=== PATIENT | male | born 1985 | race Two or more races ===

== ENCOUNTER 2023-10-02 20:07 | Emergency (ER) | payer OTHER ==
[~2023-10-02] VITALS: Ht 175.3 cm; Wt 83.9 kg
[2023-10-02 20:20] VITALS: BP 140/86; PULSE 94; RESP 20; O2SAT 98
[2023-10-02] MEDS ORDERED: IBUP-1456 PO (22:40)
== END 2023-10-02 22:52 | disposition home or self-care (01) ==
LOC: ER 20:07 → EDBD 20:07 → ER 22:52
DX: S80.12XA Contusion of left lower leg, initial encounter (principal); Z79.1 Long term (current) use of non-steroidal anti-inflammatories (NSAID); W01.0XXA Fall on same level from slipping, tripping and stumbling without subsequent striking against object, initial encounter; Y93.89 Activity, other specified; Y92.89 Other specified places as the place of occurrence of the external cause; Y99.8 Other external cause status

== ENCOUNTER 2024-03-20 09:46 | Emergency (ER) | payer OTHER ==
[~2024-03-20] VITALS: Ht 180.3 cm; Wt 86.3 kg
[~2024-03-20 09:46] MED LIST: IBUP-1456 PO
[2024-03-20 10:09] VITALS: PULSE 86; RESP 14; TEMP 98.6; O2SAT 93
[2024-03-20] MEDS: LORazepam 2MG/ML-1ML VIAL IV ONE (10:25)
[2024-03-20] MEDS: SODIUM CHLORIDE 0.9% 1,000 ML IV ONE (10:26)
[2024-03-20 11:13] LABS: Eosinophils # (auto) 0 10 ^3/uL (0-0.8); Monocytes # (auto) 0.6 10 ^3/uL (0-1.3); Neutrophils # (auto) 2.6 10 ^3/uL (1.6-8.6); White Blood Cell 3.7 10^3/uL (4.4-10.8)
[2024-03-20 11:17] LABS: Chloride 101 mmol/L (98-107); Potassium 3.8 mmol/L (3.5-5.1); Sodium 140 mmol/L (136-145)
[2024-03-20 11:18] LABS: Anion Gap 14 (5-15); Basophils # (auto) 0.1 10 ^3/uL (0-0.2); Basophils % (auto) 1.6 % (0.0-2.0); Calcium 9.3 mg/dL (8.7-10.4); Carbon Dioxide 25 mmol/L (20-30); Eosinophils % (auto) 0.3 % (0.0-7.0); Hematocrit 42.4 % (41.0-53.0); Lymphocytes # (auto) 0.4 10 ^3/uL (0.4-5.4); Lymphocytes % (auto) 9.8 % (10.0-50.0); Mean Corpuscular Hemoglobin 37.4 pg (28.0-32.0); Mean Corpuscular Hgb Conc. 35.5 g/dL (32.0-36.0); Mean Corpuscular Volume 105.5 fL (80.0-100.0); Monocytes % (auto) 15.8 % (0.0-12.0); Neutrophils % (auto) 72.5 % (37.0-80.0); Nucleated Red Blood Cells % 0.4 %; Red Blood Cells 4.02 10^6/uL (4.5-5.90); Red Cell Distribution Width 13.6 % (11.8-14.3)
[2024-03-20 11:23] LABS: BUN/Creatinine Ratio 8.1 (10.0-20.0); Blood Urea Nitrogen 5 mg/dL (9-23); Glucose 109 mg/dL (74-106)
[2024-03-20 11:24] LABS: Blood Alcohol 209.3 mg/dL (<10)
[2024-03-20] MEDS ORDERED: LORA-1121 PO (11:44)
[2024-03-20 12:00] VITALS: BP 128/81; PULSE 79; RESP 14; O2SAT 94
[2024-03-20 12:26] LABS: Amphetamine Screen, Urine Neg (NEGATIVE); Barbiturate Scree,Urine Neg (NEGATIVE); Benzodiazephine Screen, Urine Neg (NEGATIVE); Cocaine Screen, Urine Neg (NEGATIVE)
[2024-03-20 12:27] LABS: Cannabinoid Screen, Urine Neg (NEGATIVE); Opiate Scree,Urine Neg (NEGATIVE); Phencyclidine Screen, Urine Neg (NEGATIVE)
== END 2024-03-20 12:21 | disposition home or self-care (01) ==
LOC: EDBD 09:46 → ER 09:46
DX: F10.239 Alcohol dependence with withdrawal, unspecified (principal); F10.229 Alcohol dependence with intoxication, unspecified; R11.2 Nausea with vomiting, unspecified; Z79.899 Other long term (current) drug therapy; Y90.8 Blood alcohol level of 240 mg/100 ml or more
CPT/HCPCS: 36415; 80048; 80307; 80320; 85025; 96361; 96374; 99283; J2060; J7030

== ENCOUNTER 2024-03-21 11:23 | Inpatient (IN) | payer OTHER ==
[~2024-03-21] VITALS: Ht 180.3 cm; Wt 81.0 kg
[~2024-03-21 11:23] MED LIST changes: +LORA-1121 PO
[2024-03-21] MEDS: SODIUM CHLORIDE 0.9% 1,000 ML IV ONE ×2 (11:30)
[2024-03-21] MEDS: THIAMINE 100mg/ml INJ (200mg/2ml VIAL) IV ONE (12:10)
[2024-03-21] MEDS: LORazepam 2MG/ML-1ML VIAL IV ONE (12:10)
[2024-03-21 12:46] VITALS: PULSE 86; RESP 18; O2SAT 98
[2024-03-21] MEDS ORDERED: NITROGLYCERIN 0.4 MG SL TAB SL PRN (15:45)
[2024-03-21] MEDS: SODIUM CHLORIDE 0.9% 1,000 ML IV SCH (15:45)
[2024-03-21] MEDS ORDERED: ONDANSETRON HCL 4 MG/2 ML VIAL IV PRN (15:45)
[2024-03-21] MEDS ORDERED: DOCUSATE SOD 100 MG CAP PO PRN (15:45)
[2024-03-21] MEDS ORDERED: LORazepam 2MG/ML-1ML VIAL IV PRN (16:15)
[2024-03-21] MEDS: chlordiazePOXIDE HCL 25 MG CAP PO SCH (16:29)
[2024-03-21] MEDS: LORazepam 2MG/ML-1ML VIAL IV PRN (16:29)
[2024-03-21 16:57] LABS: Basophils # (auto) 0.1 10 ^3/uL (0-0.2); Eosinophils # (auto) 0 10 ^3/uL (0-0.8); Eosinophils % (auto) 0.3 % (0.0-7.0); Hemoglobin 15.2 g/dL (13.5-17.5); Lymphocytes # (auto) 0.7 10 ^3/uL (0.4-5.4); Monocytes # (auto) 0.6 10 ^3/uL (0-1.3); Neutrophils # (auto) 3.1 10 ^3/uL (1.6-8.6); Nucleated Red Blood Cells % 0.1 %; White Blood Cell 4.5 10^3/uL (4.4-10.8)
[2024-03-21 17:00] LABS: Basophils % (auto) 1.2 % (0.0-2.0); Hematocrit 43.6 % (41.0-53.0); Lymphocytes % (auto) 15.2 % (10.0-50.0); Mean Corpuscular Hgb Conc. 34.8 g/dL (32.0-36.0); Mean Corpuscular Volume 106.4 fL (80.0-100.0); Neutrophils % (auto) 69.3 % (37.0-80.0); Platelet Count (auto) 127 10^3/uL (140-450); Red Cell Distribution Width 13.4 % (11.8-14.3)
[2024-03-21 17:01] LABS: Alanine Aminotransferase 151 U/L (7-40); Albumin 4.4 g/dL (3.2-4.8); Alkaline Phosphatase 84 U/L (46-116); Anion Gap 8 (5-15); Aspartate Aminotransferase 269 U/L (13-40); Bilirubin, Total 1.2 mg/dL (0.2-1.0); Calcium 9.2 mg/dL (8.7-10.4); Carbon Dioxide 28 mmol/L (20-30); Chloride 103 mmol/L (98-107); Glucose 104 mg/dL (74-106); Potassium 3.7 mmol/L (3.5-5.1); Sodium 139 mmol/L (136-145); Total Protein 7.2 g/dL (5.7-8.2)
[2024-03-21 17:08] LABS: BUN/Creatinine Ratio 8.1 (10.0-20.0); Blood Urea Nitrogen < 5 mg/dL (9-23)
[2024-03-21] MEDS: FOLIC ACID 1 MG, MAGNESIUM SULF SDV 50% 8 MEQ, MULTIPLE VITAMIN 10 ML, THIAMINE INJ 100... INJ SCH (20:00)
[2024-03-21 22:45] VITALS: BP 149/94; PULSE 77; RESP 17; TEMP 98.9; O2SAT 94
[2024-03-21 23:21] VITALS: BP 149/94; PULSE 77; RESP 17; TEMP 98.9; O2SAT 94
[2024-03-22] VITALS (8 sets, daily range): BP systolic 137–165; BP diastolic 87–99; PULSE 63–86; RESP 15–20; TEMP 97.8–99; O2SAT 94–98
[2024-03-22 06:36] LABS: Basophils # (auto) 0.1 10 ^3/uL (0-0.2); Basophils % (auto) 1.4 % (0.0-2.0); Eosinophils # (auto) 0.1 10 ^3/uL (0-0.8); Hemoglobin 15.7 g/dL (13.5-17.5); Lymphocytes # (auto) 0.5 10 ^3/uL (0.4-5.4); Mean Corpuscular Hgb Conc. 35.2 g/dL (32.0-36.0); Monocytes # (auto) 0.7 10 ^3/uL (0-1.3); Nucleated Red Blood Cells % 0.1 %
[2024-03-22 06:41] LABS: Eosinophils % (auto) 1.2 % (0.0-7.0); Hematocrit 44.6 % (41.0-53.0); Lymphocytes % (auto) 10.2 % (10.0-50.0); Mean Corpuscular Hemoglobin 37.6 pg (28.0-32.0); Mean Corpuscular Volume 106.8 fL (80.0-100.0); Monocytes % (auto) 13.6 % (0.0-12.0); Neutrophils # (auto) 3.9 10 ^3/uL (1.6-8.6); Neutrophils % (auto) 73.6 % (37.0-80.0); Platelet Count (auto) 112 10^3/uL (140-450); Red Blood Cells 4.18 10^6/uL (4.5-5.90); Red Cell Distribution Width 13.4 % (11.8-14.3); White Blood Cell 5.3 10^3/uL (4.4-10.8)
[2024-03-22 06:50] LABS: Alanine Aminotransferase 130 U/L (7-40); Albumin 4.4 g/dL (3.2-4.8); Alkaline Phosphatase 84 U/L (46-116); Anion Gap 9 (5-15); Aspartate Aminotransferase 192 U/L (13-40); Bilirubin, Total 2.3 mg/dL (0.2-1.0); Calcium 9.6 mg/dL (8.7-10.4); Carbon Dioxide 29 mmol/L (20-30); Chloride 100 mmol/L (98-107); Glucose 98 mg/dL (74-106); Potassium 3.2 mmol/L (3.5-5.1); Sodium 138 mmol/L (136-145)
[2024-03-22 06:51] LABS: Total Protein 7.3 g/dL (5.7-8.2)
[2024-03-22 06:53] LABS: BUN/Creatinine Ratio 7.7 (10.0-20.0); Blood Urea Nitrogen < 5 mg/dL (9-23)
[2024-03-22] MEDS: POTASSIUM CHL 20 Meq TABLET PO ONE (09:14)
[2024-03-22] MEDS: chlordiazePOXIDE HCL 25 MG CAP PO SCH (09:15)
[2024-03-22] MEDS: ENOXAPARIN SOD 40 MG/0.4 ML SYRINGE SC ONE (12:24)
[2024-03-22] MEDS: THIAMINE HCL 100 MG TAB PO ONE (18:13)
[2024-03-22] MEDS: MAGNESIUM OXIDE 400 MG TAB PO ONE (18:13)
[2024-03-22] MEDS: FOLIC ACID 1 MG TAB PO ONE (18:14)
[2024-03-22] MEDS: MULTIPLE VITAMINS W/ MINERALS TAB PO ONE (18:14)
[2024-03-23] VITALS (7 sets, daily range): BP systolic 146–158; BP diastolic 67–112; PULSE 61–100; RESP 16–18; TEMP 98.1–98.7; O2SAT 95–98
[2024-03-23 04:53] LABS: Basophils # (auto) 0.1 10 ^3/uL (0-0.2); Eosinophils # (auto) 0.2 10 ^3/uL (0-0.8); Monocytes # (auto) 0.8 10 ^3/uL (0-1.3)
[2024-03-23 04:59] LABS: Basophils % (auto) 1.4 % (0.0-2.0); Eosinophils % (auto) 2.7 % (0.0-7.0); Hematocrit 45.3 % (41.0-53.0); Hemoglobin 16.2 g/dL (13.5-17.5); Lymphocytes # (auto) 0.9 10 ^3/uL (0.4-5.4); Lymphocytes % (auto) 12.9 % (10.0-50.0); Mean Corpuscular Hemoglobin 38.2 pg (28.0-32.0); Mean Corpuscular Hgb Conc. 35.7 g/dL (32.0-36.0); Mean Corpuscular Volume 106.8 fL (80.0-100.0); Monocytes % (auto) 11.3 % (0.0-12.0); Neutrophils % (auto) 71.7 % (37.0-80.0); Nucleated Red Blood Cells % 0.1 %; Platelet Count (auto) 114 10^3/uL (140-450); Red Blood Cells 4.24 10^6/uL (4.5-5.90); Red Cell Distribution Width 13.1 % (11.8-14.3); White Blood Cell 6.9 10^3/uL (4.4-10.8)
[2024-03-23 05:11] LABS: Alanine Aminotransferase 114 U/L (7-40); Albumin 4.4 g/dL (3.2-4.8); Alkaline Phosphatase 79 U/L (46-116); Anion Gap 6 (5-15); Aspartate Aminotransferase 144 U/L (13-40); BUN/Creatinine Ratio 9.9 (10.0-20.0); Blood Urea Nitrogen 7 mg/dL (9-23); Calcium 10.1 mg/dL (8.7-10.4); Carbon Dioxide 28 mmol/L (20-30); Chloride 104 mmol/L (98-107); Glucose 105 mg/dL (74-106); Potassium 4.2 mmol/L (3.5-5.1); Sodium 138 mmol/L (136-145)
[2024-03-23 05:12] LABS: Bilirubin, Total 1.7 mg/dL (0.2-1.0); Phosphorus 4.5 mg/dL (2.4-5.1); Total Protein 7.6 g/dL (5.7-8.2)
[2024-03-23] MEDS: ENOXAPARIN SOD 40 MG/0.4 ML SYRINGE SC SCH (08:52)
[2024-03-23] MEDS: MULTIPLE VITAMINS W/ MINERALS TAB PO SCH (08:52)
[2024-03-23] MEDS: THIAMINE HCL 100 MG TAB PO SCH (08:52)
[2024-03-23] MEDS: MAGNESIUM OXIDE 400 MG TAB PO SCH (08:52)
[2024-03-23] MEDS: FOLIC ACID 1 MG TAB PO SCH (08:53)
[2024-03-23] MEDS: chlordiazePOXIDE HCL 25 MG CAP PO SCH (08:53)
[2024-03-24] MEDS ORDERED: chlordiazePOXIDE HCL 25 MG CAP PO SCH (07:00)
[2024-03-25 09:24] LABS: Hepatitis B Surface Antigen Negative (Negative)
[2024-03-25 09:44] LABS: Hepatitis A Ab IgM Negative
[2024-03-25 09:45] LABS: Hepatitis B Core IgM Negative; Hepatitis C Antibody Negative (Negative)
== END 2024-03-23 16:30 | disposition home or self-care (01) | DRG 203 ==
LOC: EDBD 11:23 → ER 11:25 → TELE 15:44 → TELE-CENTR 22:20
PROVIDERS: ADMIT Internal Medicine; ATTEND Internal Medicine
DX: R07.89 Other chest pain (principal); E86.0 Dehydration; F10.129 Alcohol abuse with intoxication, unspecified; E87.6 Hypokalemia; F41.9 Anxiety disorder, unspecified; F10.139 Alcohol abuse with withdrawal, unspecified; Y90.8 Blood alcohol level of 240 mg/100 ml or more; Z59.00 Homelessness unspecified
CPT/HCPCS: 36415; 71045; 80053; 80074; 80320; 82607; 82746; 83735; 84100; 84484; 85025; 85379; 87040; 93306; 93970; G0378

== ENCOUNTER 2024-04-02 19:09 | Emergency (ER) | payer OTHER ==
[~2024-04-02] VITALS: Ht 180.3 cm; Wt 86.4 kg
[2024-04-02 19:26] VITALS: BP 133/91; PULSE 97; RESP 16; O2SAT 100
[2024-04-02] MEDS ORDERED: SODIUM CHLORIDE 0.9% 1,000 ML IV ONE (19:30)
[2024-04-02] MEDS ORDERED: FAMOTIDINE (10MG/ML) 2ML VL IV ONE (19:30)
[2024-04-02] MEDS ORDERED: ONDANSETRON HCL 4 MG/2 ML VIAL IV ONE (19:30)
[2024-04-02] MEDS ORDERED: ASPirin 81 mg TAB PO ONE (19:30)
[2024-04-02 19:56] LABS: Basophils # (auto) 0.2 10 ^3/uL (0-0.2); Basophils % (auto) 2.6 % (0.0-2.0); Eosinophils # (auto) 0 10 ^3/uL (0-0.8); Eosinophils % (auto) 0.3 % (0.0-7.0); Hemoglobin 14.9 g/dL (13.5-17.5); Lymphocytes % (auto) 13.3 % (10.0-50.0); Mean Corpuscular Hgb Conc. 34.6 g/dL (32.0-36.0); Mean Corpuscular Volume 106.9 fL (80.0-100.0); Monocytes # (auto) 0.6 10 ^3/uL (0-1.3); Monocytes % (auto) 8.5 % (0.0-12.0); Neutrophils # (auto) 5.4 10 ^3/uL (1.6-8.6); Neutrophils % (auto) 75.3 % (37.0-80.0); Nucleated Red Blood Cells % 0.1 %; Red Blood Cells 4.02 10^6/uL (4.5-5.90); Red Cell Distribution Width 12.7 % (11.8-14.3); White Blood Cell 7.2 10^3/uL (4.4-10.8)
[2024-04-02 20:04] LABS: Chloride 108 mmol/L (98-107); Potassium 3.7 mmol/L (3.5-5.1); Sodium 145 mmol/L (136-145)
[2024-04-02 20:05] LABS: Anion Gap 10 (5-15); Carbon Dioxide 27 mmol/L (20-30)
[2024-04-02 20:06] LABS: Calcium 8.6 mg/dL (8.7-10.4)
[2024-04-02 20:11] LABS: BUN/Creatinine Ratio 6.4 (10.0-20.0); Blood Urea Nitrogen < 5 mg/dL (9-23); Glucose 110 mg/dL (74-106)
[2024-04-02 20:29] LABS: Blood Alcohol 414.5 mg/dL (<10)
[2024-04-03] MEDS ORDERED: IOHEXOL 300 MG/ML 100ML BOTTLE IJ ONE (05:55)
== END 2024-04-03 01:17 | disposition left against medical advice (07) ==
LOC: EDBD 19:09 → ER 19:09
DX: S22.42XA Multiple fractures of ribs, left side, initial encounter for closed fracture (principal); F10.10 Alcohol abuse, uncomplicated; M54.2 Cervicalgia; Y04.2XXA Assault by strike against or bumped into by another person, initial encounter; Y93.89 Activity, other specified; Y92.89 Other specified places as the place of occurrence of the external cause; Y99.8 Other external cause status
CPT/HCPCS: 36415; 70450; 71260; 72125; 74177; 80048; 80320; 83880; 84484; 85025; 93005; 99285; Q9967